=== PATIENT | female | born 1990 | race Caucasian/White ===

== ENCOUNTER 2018-02-12 07:36 | Outpatient (CLI) | payer OTHER | END 2018-02-12 07:37 | disposition home or self-care (01) | LOC: BICULT 07:36 | PROVIDERS: ATTEND Family Medicine | DX: O44.42 Low lying placenta NOS or without hemorrhage, second trimester (principal); Z3A.24 24 weeks gestation of pregnancy | CPT/HCPCS: 76816 ==

== ENCOUNTER 2018-04-14 08:41 | Outpatient (CLI) | payer OTHER ==
--- NOTE | 2018-04-14 10:28 | ULT ---
OB ULTRASOUND: HISTORY: Size and dates. Evaluation of a low lying placenta noted no previous ultrasound. COMPARISON: 02/12/2018 FINDINGS: Real-time images of the pelvis were obtained. These show a single viable intrauterine , whi ch is in a cephalic presentation. The placenta is posterior in location. There is no evidence of pr evia. The cervical canal length is approximately 4 cm. heart rate is 156 beats per minute. Review of anatomy showed a normal appearing head and cerebellum. The ventricles appear within normal limits. Four-chamber heart, stomach, kidneys, cord insertion, and bladder all appear normal. The spine and extremities are somewhat difficult to assess due to positioning. Amniotic fluid is adequate for this stage of . The amniotic fluid index is 12.1. measurements are as follows: BPD: 8.3 cm (33 weeks 4 days). HEAD CIRCUMFERENCE: 31.3 cm (35 weeks 1 day). ABDOMINAL CIRCUMFERENCE: 30.1 cm (34 weeks 1 day). FEMUR LENGTH: 6.2 cm (42 weeks 1 day). IMPRESSION: 1. Single viable intrauterine , in a cephalic presentation. Overall measurements correspon d to a gestational age of 33 weeks 6 days, with an estimated date of delivery of 05/27/2018. This ap pears to be a normal progression of from the patient's dates and in comparison to the previ ous ultrasound examination. 2. Placenta, which is posterior in location, without evidence of previa. POS: [facility]
== END 2018-04-14 08:42 | disposition home or self-care (01) ==
LOC: BICULT 08:41
PROVIDERS: ATTEND Family Medicine
DX: O44.43 Low lying placenta NOS or without hemorrhage, third trimester (principal)
CPT/HCPCS: 76805

== ENCOUNTER 2018-05-27 09:38 | Inpatient (IN) | payer OTHER ==
[2018-05-31] MEDS ORDERED: Bupivacaine/Epinephrine 0.25% 30 ML VIAL ONE (20:00)
[2018-05-31] MEDS ORDERED: NS w/ Oxytocin 10 units 500 ML IV SCH (22:01)
[2018-05-31] MEDS ORDERED: Ibuprofen 800 MG TAB PO PRN (22:01)
[2018-05-31] MEDS ORDERED: Lidocaine 1% (PF) 30 ML VIAL SC PRN (22:01)
[2018-05-31] MEDS ORDERED: Zolpidem Tartrate 5 MG TAB PO PRN (22:01)
[2018-05-31] MEDS ORDERED: Butorphanol Tartrate 1 MG/ML VIAL SLOW IVP PRN (22:01)
[2018-05-31] MEDS ORDERED: Promethazine HCl 25 MG/ML VIAL IM PRN (22:01)
[2018-05-31] MEDS ORDERED: Acetaminophen/Codeine 30-300mg Tablet PO PRN (22:01)
[2018-05-31] MEDS ORDERED: HYDROcodone/Acetaminophen 5/325 mg Tablet PO PRN (22:01)
[2018-05-31] MEDS ORDERED: Ondansetron PF 4 MG/2 ML Vial IVP PRN (22:01)
[2018-05-31] MEDS ORDERED: Misoprostol 200 MCG TAB PR PRN (22:01)
[2018-05-31] MEDS ORDERED: Acetaminophen 500 MG TAB PO PRN (22:01)
[2018-05-31 22:15] VITALS: BMI 37.6
[2018-05-31] MEDS: Lactated Ringer's 1,000 ML IV SCH (22:37)
[2018-05-31] MEDS: Misoprostol 100 MCG TAB VAG SCH (22:45)
[2018-05-31 22:56] LABS: Mean Corpuscular HGB CONC 34.4 g/dL (32.0-36.0); Mean Corpuscular Hemoglobin 26.3 pg (27.0-31.0); Mean Corpuscular Volume 76.6 fL (78.0-98.0); Mean Platelet Volume 9.3 fL (7.4-10.4); Platelet Count 277 thou/uL (130-400); RBC Distribution Width 13.3 % (11.5-14.5); Red Blood Cell (RBC) Count 4.57 mill/uL (4.20-5.40); White Blood Cell (WBC) Count 9.5 thou/uL (4.8-10.8)
[2018-05-31 23:24] LABS: HBSAg Index 0.25 S/CO (0-0.99); Hep B Surf Ag Non-Reactive S/CO (NonReactive); Syphilis Antibody Nonreactive (Nonreactive); Syphilis Antibody Index 0.04 S/CO (<1.00 Non-Reactive)
[2018-06-01] MEDS: Misoprostol 100 MCG TAB VAG SCH ×7 (03:50→21:27)
[2018-06-01] MEDS: Lactated Ringer's 1,000 ML IV SCH ×3 (05:51→21:27)
[2018-06-01] MEDS: NS w/ Oxytocin 10 units 500 ML IV SCH (21:28)
[2018-06-01] MEDS ORDERED: Fentanyl 4 mcg/Bup 0.1% Cadd 100 ML ONE (23:24)
[2018-06-01] MEDS ORDERED: Lidocaine 1.5%/Epinephrine 1:200,000 5 ML AMPUL IJ ONE (23:44)
[2018-06-02] MEDS: Misoprostol 100 MCG TAB VAG SCH ×3 (00:20→06:52)
[2018-06-02] MEDS ORDERED: Acetaminophen 325 MG TAB PO PRN (00:35)
[2018-06-02] MEDS ORDERED: Ondansetron PF 4 MG/2 ML Vial IVP PRN ×2 (00:35→18:40)
[2018-06-02] MEDS ORDERED: Naloxone HCl 0.4 mg/ml Vial IVP PRN ×2 (00:35)
[2018-06-02] MEDS ORDERED: Promethazine HCl 25 MG/ML VIAL IM PRN (00:35)
[2018-06-02] MEDS ORDERED: Lactated Ringer's 500 ML IV PRN (00:35)
[2018-06-02] MEDS ORDERED: diphenhydrAMINE 50 MG/ML VIAL IVP PRN (00:35)
[2018-06-02] MEDS ORDERED: ePHEDrine/0.9% NaCl/PF SYRINGE 50 mg/10 ml SLOW IVP PRN (00:35)
[2018-06-02] MEDS ORDERED: Eucerin (Mineral Oil/Petrolatum,White) 30 gm Jar TOP PRN (00:35)
[2018-06-02] MEDS ORDERED: Communication Order-Pharmacy FS SCH (00:45)
[2018-06-02] MEDS: Lactated Ringer's 1,000 ML IV SCH ×2 (02:03→08:05)
[2018-06-02] MEDS: NS w/ Oxytocin 10 units 500 ML IV SCH (06:52)
[2018-06-02] MEDS ORDERED: Fentanyl 4 mcg/Bup 0.1% Cadd 100 ML ONE ×2 (07:58→13:54)
[2018-06-02] MEDS: Fentanyl 4 mcg/Bupivacaine 0.1% Cassette 100 ML EPIDURAL SCH ×2 (08:05→13:59)
[2018-06-02] MEDS: NS / Oxytocin 40 units/1000ml 1,000 ML IV PRN ×2 (14:45→15:48)
[2018-06-02] MEDS ORDERED: Bisacodyl 10 MG SUPP PR PRN (18:40)
[2018-06-02] MEDS ORDERED: HYDROcodone/Acetaminophen 5/325 mg Tablet PO PRN (18:40)
[2018-06-02] MEDS ORDERED: NS / Oxytocin 40 units/1000ml 1,000 ML IV SCH (18:40)
[2018-06-02] MEDS ORDERED: Milk Of Magnesia 30 ML UDCUP PO PRN (18:40)
[2018-06-02] MEDS ORDERED: Acetaminophen/Codeine 30-300mg Tablet PO PRN (18:40)
[2018-06-02] MEDS ORDERED: diphenhydrAMINE 25 MG CAP PO PRN (18:40)
[2018-06-02] MEDS ORDERED: Benzocaine/Menthol 20-0.5% 60 ML CAN TOP PRN (18:40)
[2018-06-02] MEDS ORDERED: Lanolin Ointment 7 GM TUBE TOP PRN (18:40)
[2018-06-02] MEDS ORDERED: Preparation H Ointment 28 GM TUBE PR PRN (18:40)
[2018-06-02] MEDS: Docusate Calcium (SURFAK) 240 MG CAP PO SCH (21:33)
[2018-06-02] MEDS: Ibuprofen 800 MG TAB PO SCH (21:34)
[2018-06-03] MEDS: Ibuprofen 800 MG TAB PO SCH ×2 (05:52→14:02)
[2018-06-03] MEDS ORDERED: Ferrous Sulfate 325 MG TAB PO SCH (08:00)
[2018-06-03] MEDS: Docusate Calcium (SURFAK) 240 MG CAP PO SCH (08:49)
[2018-06-03] MEDS ORDERED: Prenatal Vitamin 1 TAB PO SCH (09:00)
--- NOTE | 2018-06-03 10:59 | PDOC.PP ---
Post Progress Note Post Day #: 1 Subjective: No c/o. Pain minimal. Lochia normal. PO intake tolerated: yes Flatus: yes Ambulation: yes Vital Signs (12 hours) Temp Pulse Resp BP Pulse Ox 06/03/18 09:39 96 06/03/18 08:34 98.9 F 77 20 100/55 L 96 06/03/18 04:25 98.0 F 76 18 101/58 L 06/03/18 00:20 98.3 F 84 18 94/55 L Weight Weight 206 lb - Physical Examination General: NAD Cardiovascular: no m/r/g, RRR Respiratory: clear to auscultation bilaterally, non-labored breathing Abdominal: + bowel sounds, lochia, no distention, appropriately TTP Result Diagrams: 05/31/18 22:24 Additional Labs: Post Labs Blood Type O POSITIVE 05/31/18 22:24 Hep Bs Antigen Non-Reactive S/CO (NonReactive) 05/31/18 22:24 (1) Vaginal delivery Code(s): O80 - ENCOUNTER FOR FULL-TERM UNCOMPLICATED DELIVERY Status: Acute - Assessment/Plan Routine PP care Pt requesting D/C today Advised it will be this evening at the earliest and she agrees with that F/U with AD in 6 weeks.
[2018-06-03 12:10] VITALS: BP 119/76; TEMP 97.6
== END 2018-06-03 17:30 | disposition home or self-care (01) | DRG 807 ==
LOC: L&D 05-31 21:52 → 3SW 06-02 18:20
PROVIDERS: ADMIT Family Medicine; ATTEND Family Medicine
PROC: 10E0XZZ Delivery of Products of Conception, External Approach (ICD-10-PCS; principal; 2018-06-02)
PROC: 0HQ9XZZ Repair Perineum Skin, External Approach (ICD-10-PCS; 2018-06-02)
PROC: 4A1HXCZ Monitoring of Products of Conception, Cardiac Rate, External Approach (ICD-10-PCS; 2018-06-02)
PROC: 4A1HXFZ Monitoring of Products of Conception, Cardiac Rhythm, External Approach (ICD-10-PCS; 2018-06-02)
DX: O48.0 Post-term pregnancy (principal); Z37.0 Single live birth; Z3A.40 40 weeks gestation of pregnancy; O76 Abnormality in fetal heart rate and rhythm complicating labor and delivery; O70.0 First degree perineal laceration during delivery; O69.81X0 Labor and delivery complicated by cord around neck, without compression, not applicable or unspecified
CPT/HCPCS: 36415; 51702; 85027; 86780; 86850; 86900; 86901; 87340; C1726; J0595; J2001; J3490

== ENCOUNTER 2023-06-05 01:44 | Emergency (ER) | payer BC ==
[2023-06-05 02:44] LABS: #Eosinphils 0.1 thou/uL (0.0-0.7); #Monocytes 0.8 thou/uL (0.11-0.59); #Neutrophils 4.4 thou/uL (1.40-6.50); %Basophils 0.5 % (0.0-1.0); %Eosinophils 1.5 % (0.0-10.0); %Lymphocytes 28.7 % (21.0-51.0); %Monocytes 10.5 % (0.0-10.0); %Neutrophils 58.5 % (42.0-75.0); Hematocrit 41.1 % (36.0-47.0); Hemoglobin 13.9 g/dL (12.0-16.0); Mean Corpuscular HGB CONC 33.8 g/dL (32.0-36.0); Mean Corpuscular Hemoglobin 28.5 pg (27.0-31.0); Mean Corpuscular Volume 84.4 fl (78.0-98.0); Mean Platelet Volume 10.9 fL (7.4-10.4); Platelet Count 268 10x3/uL (130-400); RBC Distribution Width 12.6 % (11.5-14.5); Red Blood Cell (RBC) Count 4.87 mill/uL (4.20-5.40); White Blood Cell (WBC) Count 7.5 10x3/uL (4.8-10.8)
[2023-06-05 02:47] LABS: Bacteria/HPF None Seen HPF (None Seen); Bilirubin Negative (Negative); Blood, Urine 1+ (Negative); CAUTI Indications for Culture Pelvic or flank pain; Clarity Clear (Clear); Glucose, Urine (Dipstick) Normal (Negative); Ketone, Urine Negative (Negative); Leukocyte Negative Leu/uL (Negative); Nitrite Negative (Negative); Protein, Urine (Dipstick) Negative (Neg-Trace); Specific Gravity, Urine 1.026 (1.002-1.036); Squamous Epithelial 0-3 HPF (0-3); WBC/HPF 0-3 HPF (0-3); pH, Urine 6.5 (5.0-9.0)
[2023-06-05 02:49] LABS: Pregnancy Test - Urine (BHCG) Negative (Negative); Pregu Control Background? CLEAR/WHITE (CLR/WHITE); Pregu Control Bar Appear? YES (CONTROL BAR); Specific Gravity 1.026 (1.002-1.036); Urine Culture Reflex No No
[2023-06-05 03:06] LABS: ALT (SGPT) 15 U/L (8-55); AST (SGOT) 12 U/L (5-34); Albumin 4.1 g/dL (3.5-5.0); Alkaline Phosphatase 64 U/L (40-110); Anion Gap 10 mmol/L (10-20); BUN (Urea Nitrogen) 15 mg/dL (7.0-18.7); Bilirubin, Total 0.3 mg/dL (0.2-1.2); Calc. Creatinine Clearance 0 mL/min (70-130); Calcium 8.9 mg/dL (7.8-10.44); Carbon Dioxide 23 mmol/L (22-29); Chloride 106 mmol/L (98-107); Estimated GFR 118; Glucose 136 mg/dL (70-105); Lipase 35 U/L (8-78); Potassium 3.9 mmol/L (3.5-5.1); Protein, Total 7.1 g/dL (6.0-8.3); Sodium 135 mmol/L (136-145)
[2023-06-05] MEDS ORDERED: Ketorolac Tromethamine 30 MG/ML VIAL ONE (03:13)
[2023-06-05] MEDS ORDERED: Ondansetron ODT 4 MG TAB ONE (03:14)
== END 2023-06-05 06:08 | disposition home or self-care (01) ==
LOC: ERS 01:44
DX: K80.20 Calculus of gallbladder without cholecystitis without obstruction (principal)
CPT/HCPCS: 36415; 74176; 76705; 80053; 81001; 81025; 83690; 85025; 96372; J1885; Q0162

== ENCOUNTER 2023-06-18 07:37 | Day surgery (SDC) | payer BC ==
[2023-06-05 10:30] VITALS: BMI 34.4
[2023-06-18] MEDS ORDERED: Sodium Chloride 0.9% 100 ML ONE (08:20)
[2023-06-18] MEDS ORDERED: cefOXitin 2 GM VIAL ONE (08:20)
[2023-06-18] MEDS ORDERED: EPINEPHrine 1 MG/ML VIAL ONE (09:38)
[2023-06-18] MEDS ORDERED: Indocyanine Green 25 MG/10 ML VIAL ONE (09:38)
[2023-06-18] MEDS ORDERED: Bupivacaine 0.25% HCL 30 ML VIAL ONE (09:38)
[2023-06-18] MEDS ORDERED: PROPOFOL 20 ML ONE (10:08)
[2023-06-18] MEDS ORDERED: fentaNYL PF 100 MCG/2 ML SYRINGE ONE (10:08)
[2023-06-18] MEDS ORDERED: Midazolam HCl 2 mg/2 ml Vial ONE (10:08)
[2023-06-18] MEDS ORDERED: Rocuronium Bromide 10 MG/ML (10ML VIAL) ONE (10:09)
[2023-06-18] MEDS ORDERED: Ondansetron PF 4 MG/2 ML Vial ONE (10:09)
[2023-06-18] MEDS ORDERED: Lidocaine 1% PF 5 ML VIAL ONE (10:09)
[2023-06-18] MEDS ORDERED: Dexamethasone 20 MG/5 ML VIAL ONE (10:09)
[2023-06-18] MEDS ORDERED: Ketorolac Tromethamine 30 MG (1 mL) VIAL ONE (10:41)
[2023-06-18] MEDS ORDERED: SUGAMMADEX SODIUM 200 MG/2 ML VIAL ONE (11:02)
[2023-06-18] MEDS ORDERED: HYDROcodone/Acetaminophen 5/325 mg Tablet ONE (12:25)
== END 2023-06-18 13:00 | disposition home or self-care (01) ==
LOC: SDC 07:37
PROVIDERS: ATTEND Surgery
PROC: 0FT44ZZ Resection of Gallbladder, Percutaneous Endoscopic Approach (ICD-10-PCS; principal; 2023-06-18)
DX: K80.10 Calculus of gallbladder with chronic cholecystitis without obstruction (principal); Z79.899 Other long term (current) drug therapy
CPT/HCPCS: 88304; C1776; J0171; J0694; J1100; J1885; J2250; J2405; J2704; J3490; S0020